=== PATIENT | male | born 1965 | race Caucasian/White ===

== ENCOUNTER 2023-05-13 14:44 | Emergency (ER) | payer OTHER, SELFPAY ==
--- NOTE | ~2023-05-13 | XR_ITS ---
EXAMINATION: XR ankle RT min 3V DATE: 05/13/2023 15:06 INDICATION: Posterolateral right ankle pain post injury 2 days prior TECHNIQUE: Anteroposterior, oblique, mortise, and lateral views of the right ankle were obtained. COMPARISON: None. FINDINGS: Bone alignment is normal. No fracture. Heterotopic ossicle in the expected location of the anterior t alofibular ligament likely sequela of chronic lateral ankle sprain. There is soft tissue overlying th e lateral malleolus which suggests recurrent injury. No ankle joint effusion. IMPRESSION: 1. No acute osseous abnormality. Reviewed, dictated and finalized at location A.
--- NOTE | 2023-05-13 14:52 | ED.LOWEXIN ---
HPI - Extremity Injury (Lower) General Chief Complaint: Extremity Injury, Lower Stated Complaint: Rt Ankle Pain Time Seen by Provider: 05/13/23 15:17 Source: patient and RN notes reviewed Mode of arrival: ambulatory Limitations: no limitations History of Present Illness HPI Narrative: 57-year-old male presents with concern for right ankle injury. Reports on Tuesday he stepped in a hole and ?tweaked? his foot and ankle. Reports pain, stiffness has increased over the last couple of days. Reports last night he used ice, elevation. He reports he has been taking ibuprofen. Reports swelling. Reports limited flexion or extension of the ankle MD complaint: ankle injury Related Data Home Medications Medication Instructions Recorded Confirmed fluoxetine 20 mg capsule 20 mg PO DAILY 05/13/23 05/13/23 omeprazole 40 mg capsule,delayed 40 mg PO DAILY 05/13/23 05/13/23 release rosuvastatin 20 mg tablet 20 mg PO DAILY 05/13/23 05/13/23 suvorexant 10 mg tablet (Belsomra) 10 mg PO DAILY 05/13/23 05/13/23 zolpidem 10 mg tablet 10 mg PO PRN PRN Insomnia 05/13/23 05/13/23 Allergies Allergy/AdvReac Type Severity Reaction Status Date / Time No Known Allergies Allergy Verified 05/13/23 14:52 Review of Systems Review of Systems: CONSTITUTIONAL: Denies malaise, chills, sweats, or fever. SKIN: Denies rash or itching, open skin, laceration, abrasion, redness, warmth MUSCULOSKELETAL: Reports right ankle pain and swelling NEUROLOGIC: Denies numbness, weakness All systems reviewed & are unremarkable except as noted in HPI and below PMFSH Comments At time of signature, agree with nursing past medical, surgical, social and family history. There is no relevant family history pertinent to the presenting complaint Exam Narrative: GENERAL: Well-appearing, well-nourished, and in no acute distress. HEAD: Normocephalic, atraumatic. EYES: PERRLA, conjunctivae clear NECK: Supple. CHEST: Speaks in full sentences. No respiratory distress. HEART: Regular rate and rhythm. Normal and equal peripheral pulses. EXTREMITIES: Right ankle, foot, digits have grossly normal sensation, patient reports some tingling. Flexion and extension limited. Mild ankle edema, no ecchymosis. Normal sensation with sensitivity to light touch and pain. Lateral ankle and Achilles tenderness. No open wounds, no skin tenting, no devitalized tissue or atrophy, no trophic changes, no obvious deformity, alignment normal, nearby joints and structures intact. Distal pulses palpable and equal bilaterally, skin warm, dry, pink. Capillary refill less than 3 seconds. SKIN: Warm, dry, no rash. NEURO: Alert and oriented x3. PSYCH: Normal mood and affect Course Course Emergency Course: Patient is aware of diagnosis, understands and agrees to treatment plan. Anticipatory guidance given. Patient agrees to follow-up as directed and is aware of reasons to seek care at the emergency department. Portions of this record may have been created with voice recognition software Level of Care: Express Care Visit Vital Signs Vital signs: Reviewed. MDM - Extremity Injury (Lower) MDM Narrative Medical decision making narrative: Patients injury and pain is consistent with musculoskeletal etiology. No signs of neurological or vascular compromise on exam. Compartments and tissues are soft without signs of compartment syndrome. Pain is felt appropriate for further evaluation on an outpatient basis. Critical Care Time Critical Care Time Critical Care Time: No Discharge Plan Discharge Clinical Impression: Ankle injury Patient Disposition: Home, Self-Care Condition: Stable Instructions: Antibiotic Form, Ankle Sprain (ED) Additional Instructions: Avoid activities that cause pain until the pain subsides. Ice to the area 20-30 minutes 4-6 times a day Elevate above heart Elastic wrap as directed for comfort for the next 5-7 days Crutches as directed if needed Tylenol
[2023-05-13 14:57] VITALS: BP 148/94; PULSE 88; RESP 16; TEMP 37; O2SAT 96
== END 2023-05-13 15:31 | disposition home or self-care (01) ==
PROVIDERS: Emergency Provider Nurse Practitioner; PCP Physician Assistant
DX: S99.911A Unspecified injury of right ankle, initial encounter (principal); X50.9XXA Other and unspecified overexertion or strenuous movements or postures, initial encounter; E78.00 Pure hypercholesterolemia, unspecified; K21.9 Gastro-esophageal reflux disease without esophagitis; F41.9 Anxiety disorder, unspecified
CPT/HCPCS: 73610; 99203; G0463

== ENCOUNTER 2023-08-25 17:06 | Emergency (ER) | payer OTHER, SELFPAY ==
--- NOTE | 2023-08-25 17:13 | ED.URI ---
HPI - URI/Sore Throat General Chief Complaint: Upper Respiratory Infection Stated Complaint: Bodyaches, Fever, Congestion,Cough,Nausea,Diarrhea Time Seen by Provider: 08/25/23 17:30 Source: patient and RN notes reviewed Mode of arrival: ambulatory Limitations: no limitations History of Present Illness HPI Narrative: 57-year-old male presents concern for body aches, headache, cough, chest congestion, diarrhea, fever, chills, sore throat, fatigue that started about 1 week ago. Reports he has been taking DayQuil NyQuil, ibuprofen with little relief. Reports he has been around people with similar symptoms. MD elicited complaint: cough Related Data Home Medications Medication Instructions Recorded Confirmed fluoxetine 20 mg capsule 20 mg PO DAILY 05/13/23 08/25/23 omeprazole 40 mg capsule,delayed 40 mg PO DAILY 05/13/23 08/25/23 release rosuvastatin 20 mg tablet 20 mg PO DAILY 05/13/23 08/25/23 suvorexant 10 mg tablet (Belsomra) 10 mg PO DAILY 05/13/23 08/25/23 zolpidem 10 mg tablet 10 mg PO PRN PRN Insomnia 05/13/23 08/25/23 Allergies Allergy/AdvReac Type Severity Reaction Status Date / Time tomato Allergy Unknown Verified 08/25/23 17:28 wheat Allergy Unknown Verified 08/25/23 17:28 Review of Systems Review of Systems: CONSTITUTIONAL: Reports malaise, fever. EYES: Denies visual changes, redness, or discharge. ENT: Reports rhinorrhea, congestion, and sore throat. CARDIOVASCULAR: Denies chest pain, palpitations, or edema. RESPIRATORY: Reports cough and chest congestion. Denies dyspnea. GASTROINTESTINAL: Denies abdominal pain, nausea, vomiting, diarrhea SKIN: Denies rash or itching. MUSCULOSKELETAL: Reports myalgia. NEUROLOGIC: Reports headache. All systems reviewed & are unremarkable except as noted in HPI and below PMFSH Comments At time of signature, agree with nursing past medical, surgical, social and family history. There is no relevant family history pertinent to the presenting complaint Exam Narrative: GENERAL: Well-appearing, well-nourished, and in no acute distress. HEAD: Normocephalic EYES: PERRLA, conjunctivae clear ENT: Nares clear, turbinates edematous and erythematous. Mucous membranes moist. TM pearly johnson with dull light reflex bilaterally; no tragal tenderness. Oropharynx erythematous without lesions. Tonsils not enlarged and without exudate, no drooling, no hoarseness, no trismus, uvula midline. NECK: Supple. No lymphadenopathy CHEST: Clear to auscultation, breath sounds equal. No wheezing, rhonchi, rales, or stridor. No respiratory distress, speaks in full sentences. Cough noted HEART: Regular rate and rhythm. No murmur heard. SKIN: Warm, dry, no rash. NEURO: Alert and oriented x3. PSYCH: Normal mood and affect Course Course Emergency Course: Patient is aware of diagnosis, understands and agrees to treatment plan. Anticipatory guidance given. Patient agrees to follow-up as directed and is aware of reasons to seek care at the emergency department. Portions of this record may have been created with voice recognition software Level of Care: Express Care Visit Vital Signs Vital signs: Reviewed. MDM - URI/Sore Throat MDM Narrative Medical decision making narrative: Differential diagnosis considered: Cherry virus, strep pharyngitis, allergic rhinitis, upper respiratory tract infection, sinusitis, rhinosinusitis, nasopharyngitis. viral pharyngitis, otitis media, otitis externa, pneumonia, bronchitis, viral cough syndrome, viral syndrome, and influenza. Exam findings show no acute concerns or changes; patient is non-toxic appearing and is in no distress. Patient is appropriate for outpatient treatment and follow-up. Lab Data Attestation: I reviewed the patient's lab results. Critical Care Time Critical Care Time Critical Care Time: No Discharge Plan Discharge Clinical Impression: Upper respiratory infection with cough and congestion Patient Disposition: Home, Self-Care
[2023-08-25 17:14] VITALS: BP 123/86; PULSE 93; RESP 18; TEMP 36.4; O2SAT 96
== END 2023-08-25 18:00 | disposition home or self-care (01) ==
PROVIDERS: Emergency Provider Nurse Practitioner; PCP Physician Assistant
DX: J06.9 Acute upper respiratory infection, unspecified (principal); Z20.822 Contact with and (suspected) exposure to COVID-19
CPT/HCPCS: 87426; 87804; 99213; C9803; G0463

== ENCOUNTER 2023-11-18 17:13 | Emergency (ER) | payer OTHER, SELFPAY ==
[2023-11-18 17:28] VITALS: BP 134/80; PULSE 91; RESP 16; TEMP 36.4; O2SAT 97
[2023-11-18 17:31] VITALS: BP 134/80; PULSE 91; RESP 16; TEMP 36.4; O2SAT 97
--- NOTE | 2023-11-18 17:31 | ED.URI ---
HPI - URI/Sore Throat General Chief Complaint: Upper Respiratory Infection Stated Complaint: sorethroat Time Seen by Provider: 11/18/23 17:31 Source: patient, RN notes reviewed and old records reviewed Mode of arrival: ambulatory Limitations: no limitations History of Present Illness HPI Narrative: 58-year-old male presents to the [facility] with a sore throat that started Tuesday, 2 days ago. States that he felt better yesterday, sore throat and fatigue return today. Has history of some severe allergies, states that he does take Zyrtec daily. Has been out of his Flonase. Has taken DayQuil and NyQuil. Related Data Home Medications Medication Instructions Recorded Confirmed fluoxetine 20 mg capsule 20 mg PO DAILY 05/13/23 08/25/23 omeprazole 40 mg capsule,delayed 40 mg PO DAILY 05/13/23 08/25/23 release rosuvastatin 20 mg tablet 20 mg PO DAILY 05/13/23 08/25/23 cetirizine 10 mg capsule (Zyrtec) 10 mg PO DAILY 11/18/23 11/18/23 cholecalciferol (vitamin D3) 10 10 mcg PO DAILY 11/18/23 11/18/23 mcg (400 unit) chewable tablet zwsvriew-bjstcolv-wtghe acid 400 tablet PO 11/18/23 mcg-vit K 20 mcg-lycop 300 mcg tablet Allergies Allergy/AdvReac Type Severity Reaction Status Date / Time tomato Allergy Unknown Verified 11/18/23 17:30 wheat Allergy Unknown Verified 11/18/23 17:30 Review of Systems Review of Systems: All systems reviewed & are unremarkable except as noted in HPI and below Constitutional: Constitutional: Reports as per HPI, Reports fatigue and Denies fever(s) Eyes: Eyes: Reports no additional eye complaints ENT: Reports as per HPI and Reports sore throat Cardiovascular: Cardiovascular: Reports no additional cardiovascular complaints, Denies chest pain and Denies dyspnea Respiratory: Respiratory: Reports no additional respiratory complaints, Denies chest congestion, Denies cough and Denies dyspnea Gastrointestinal: Gastrointestinal: Reports no additional gastrointestinal complaints, Denies abdominal pain, Denies nausea and Denies vomiting Musculoskeletal: Musculoskeletal: Reports no additional musculoskeletal complaints Integumentary/Breasts: Skin/Breast: Reports system reviewed and no additional complaints, except as docu Neurologic: Reports system reviewed and no additional complaints, except as documented Psychiatric: Psychiatric: Reports no additional psychiatric complaints Allergic/Immunologic: Allergic/Immunologic: Reports no additional allergic/immunologic complaints [facility] Past Medical History Medical History (Updated 11/21/23 @ 09:33 by Nery Brewer APRN) Acid reflux High cholesterol Comments At the time of my signature, I reviewed and agree with the nursing past medical, surgical, social, and family history. There is no relevant family history pertinent to the patient complaint. Exam Const: General: cooperative, healthy appearing, comfortable, no acute distress, well developed, alert and well nourished Nutritional Appearance: well nourished Orientation/consciousness: patient oriented x3 Limitations: no limitations HENMT: Head: normal to inspection Ears: hearing grossly normal bilaterally, external ears normal, TM's normal bilaterally, EAC's normal, mastoids normal and no periauricular adenopathy Face/Nose/Sinus: Normal external nose present, Normal nares present, Normal nasal mucous membranes and turbinates present, normal facial exam and face symmetric Face and sinus: normal facial exam and face symmetric Mouth: Yes Normal oral and palatal mucosa present, Yes lip normal and Yes moist mucous membranes Throat: posterior oropharynx normal, uvula midline and postnasal drainage Eyes: General: appearance normal, both eyes and all related structures Alignment and Position: alignment normal Periorbital: periorbital findings normal Pupils: Equal, round and reactive pupils present EOM: EOMs intact bilaterally Neck: Neck: normal visual inspection, full ROM, no lymphadenopat
== END 2023-11-18 18:01 | disposition home or self-care (01) ==
PROVIDERS: Emergency Provider Nurse Practitioner; PCP Physician Assistant
DX: J11.1 Influenza due to unidentified influenza virus with other respiratory manifestations (principal); Z20.822 Contact with and (suspected) exposure to COVID-19; K21.9 Gastro-esophageal reflux disease without esophagitis; E78.00 Pure hypercholesterolemia, unspecified
CPT/HCPCS: 87081; 87426; 87804; 87880; 99213; G0463